=== PATIENT | male | born 1990 | race American Indian/Alaskan Native ===

== ENCOUNTER 2019-04-06 10:33 | Emergency (ER) | payer OTHER ==
[2019-04-06 11:43] VITALS: BP 130/82
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
== END 2019-04-06 12:12 | disposition left against medical advice (07) ==
LOC: ED 10:33
DX: M54.2 Cervicalgia (principal); Z53.21 Procedure and treatment not carried out due to patient leaving prior to being seen by health care provider